=== PATIENT | male | born 1990 | race Caucasian/White ===

== ENCOUNTER 2017-01-03 20:44 | Emergency (ER) | payer MEDICAID ==
[2017-01-03 22:55] VITALS: BP 129/78
== END 2017-01-03 22:53 | disposition home or self-care (01) ==
LOC: ED 20:44
DX: S46.002A Unspecified injury of muscle(s) and tendon(s) of the rotator cuff of left shoulder, initial encounter (principal); Z79.899 Other long term (current) drug therapy; W50.0XXA Accidental hit or strike by another person, initial encounter; Y93.89 Activity, other specified; Y92.89 Other specified places as the place of occurrence of the external cause; Y99.8 Other external cause status